=== PATIENT | female | born 2000 | race Caucasian/White ===

== ENCOUNTER → 2024-10-20 | Outpatient (CLI) | payer OTHER ==
[2024-10-20 14:59] LABS: CLUE CELLS NOT OBSERVED (Not Observd)
[2024-10-20 15:09] LABS: URINE APPEARANCE CLEAR (CLEAR); URINE BILIRUBIN NEGATIVE (NEGATIVE); URINE BLOOD NEGATIVE (NEGATIVE); URINE COLOR DARK YELLOW (YELLOW); URINE GLUCOSE NEGATIVE (NEGATIVE); URINE KETONE NEGATIVE (NEGATIVE); URINE LEUKOCYTE ESTERASE TRACE (NEGATIVE); URINE NITRATE NEGATIVE (NEGATIVE); URINE PROTEIN(semi-quant) NEGATIVE (NEGATIVE)
[2024-10-20 15:10] LABS: URINE MUCUS PRESENT (NOT PRESENT)
== END ==
LOC: LAB 14:47
PROVIDERS: Nurse Practitioner Family
DX: M25.532 Pain in left wrist (principal); N39.0 Urinary tract infection, site not specified
CPT/HCPCS: Q0111